=== PATIENT | male | born 1960 ===

== ENCOUNTER 2024-09-03 05:40 | Day surgery (SDC) | payer OTHER ==
[~2024-09-03 05:40] MED LIST: [UNRECOGNIZED DRUG - OTHER]
[2024-09-03] MEDS ORDERED: EPINEPHRINE HCL/PF 1 MG/ML AMPUL IR ONE (08:45)
[2024-09-03] MEDS ORDERED: CEFAZOLIN SODIUM 1,000 MG VIAL IV ONE ×2 (08:45→09:45)
[2024-09-03] MEDS ORDERED: PROMETHAZINE HCL 25 MG/ML AMPUL IM PRN (09:45)
[2024-09-03] MEDS ORDERED: MEPERIDINE HCL/PF 25 MG/ML VIAL IM PRN (09:45)
[2024-09-03] MEDS ORDERED: DUI500 PO (09:51)
[2024-09-03] MEDS ORDERED: TRAM1TAB98 PO (09:53)
[2024-09-03] MEDS ORDERED: CEFADROXIL 500 MG CAPSULE PO SCH (21:00)
== END 2024-09-03 13:50 | disposition home or self-care (01) ==
LOC: CIR.AMB 05:40
PROVIDERS: ATTEND Orthopaedic Surgery Sports Medicine
DX: M23.222 Derangement of posterior horn of medial meniscus due to old tear or injury, left knee (principal); M17.12 Unilateral primary osteoarthritis, left knee; M65.862 Other synovitis and tenosynovitis, left lower leg